=== PATIENT | female | born 1930 | race Caucasian/White ===

== ENCOUNTER → 2018-05-03 | Outpatient (CLI) | payer MEDICARE ==
[~2018-05-03] MED LIST: ADULT LOW DOSE81 MG PO; ALLOPURINOL 10100 M1 PO; APAP500 PO; ATENOLOL 50MG T50 M1 PO; BENZONATATE200 MG PO; HYDROCHLOROTH12.5 MG PO; LEVAQUIN 250 M250 MG PO; LEVOXYL100 MCG PO; LISINOPRIL PO; LISINOPRIL40 MG PO; LOVASTAT40 PO; LOVASTATIN PO; LOW DOSE ASPIRI81 M1 PO; MACROBID 100 M100 M2 PO; MACRODANTIN50 M1 PO; MUCINEX600 MG PO; PERCOCET 5-3251 EACH PO; PREDNISONE 10 M10 M1; SOTALOL120 MG PO; SYNTHROID PO; TOPROL XL25 MG PO
== END ==
LOC: M.ULTRA 17:00
DX: M79.605 Pain in left leg (principal); M79.672 Pain in left foot; M79.89 Other specified soft tissue disorders; I73.9 Peripheral vascular disease, unspecified

== ENCOUNTER → 2018-06-30 | Outpatient (CLI) | payer MEDICARE | LOC: M.RAD 16:53 | DX: I51.7 Cardiomegaly (principal); J98.11 Atelectasis; R07.1 Chest pain on breathing; E78.5 Hyperlipidemia, unspecified; E03.9 Hypothyroidism, unspecified; E11.9 Type 2 diabetes mellitus without complications ==

== ENCOUNTER 2018-07-07 17:44 | Inpatient (IN) | payer MEDICARE ==
[~2018-07-07] VITALS: Ht 162.6 cm; Wt 100.0 kg
--- NOTE | ~2018-07-07 | EKG ---
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
[~2018-07-07 17:44] MED LIST changes: -ALLOPURINOL 10100 M1 PO; -MACROBID 100 M100 M2 PO; -MACRODANTIN50 M1 PO
[2018-07-07 17:45] VITALS: BP 142/78
[2018-07-07 18:26] LABS: ABSOLUTE EOSINOPHILS 0.1 thou/uL (0.0-0.7); ABSOLUTE LYMPHOCYTES 2.6 thou/uL (0.8-5.3); ABSOLUTE MONOCYTES 1.6 thou/uL (0.0-1.2); ABSOLUTE NEUTROPHILS 5.9 thou/uL (1.6-8.1); BASOPHILS 0.3 %; EOSINOPHILS 1.3 %; HEMATOCRIT 42.9 % (37.0-47.0); HEMOGLOBIN 14.2 gm/dL (12.0-15.0); LYMPHOCYTES 25.8 %; MCH 31.7 pg (26.0-34.0); MCHC 33.1 g/dL (28.0-37.0); MCV 95.8 fL (80.0-100.0); MONOCYTES 15.4 %; MPV 9.8 fl. (7.2-11.1); NUCLEATED RBCS 0 /100WBC; PLATELET COUNT* 209 thou/uL (150-400); POLYS 57.2 %; RBC 4.47 mil/uL (4.20-5.00); RDW-CV 15.6 % (10.5-14.5); WBC 10.2 thou/uL (4.0-11.0)
[2018-07-07 18:30] LABS: APTT 21.9 Seconds (25.0-31.3)
[2018-07-07 18:31] LABS: CALCIUM 8.8 mg/dL (8.5-10.1); CREATININE 1.7 mg/dL (0.6-1.3); POTASSIUM 4.3 mmol/L (3.5-5.1)
[2018-07-07 18:36] LABS: ALBUMIN 2.9 g/dL (3.4-5.0); TOTAL BILIRUBIN 0.4 mg/dL (<0.1-1.0); TOTAL PROTEIN 6.9 g/dL (6.4-8.2)
[2018-07-07 21:11] VITALS: BP 122/62
[2018-07-07 21:30] VITALS: BP 172/69
--- NOTE | 2018-07-08 04:24 | NUR ---
PATIENT ARRIVED BY CART FROM ER TO ROOM 104 IN STABLE CONDITION AT 2130. ALERT AND ORIENTED X4. TYLENOL GIVEN X1 FOR PAIN PER PATIENT REQUEST, PARTIAL PAIN RELIEF REPORTED. VOIDING ADEQUATELY PER BEDPAN. DR LAY ON UNIT TO SEE PATIENT LAST EVENING, ORDERS RECEIVED. PATIENT REPOSITIONED SELF IN BED FREQUENTLY. REFUSED SCD'S AT . VITALS STABLE ON ROOM AIR. WILL CONTINUE TO MONITOR.
[2018-07-08 08:29] VITALS: BP 165/62
[2018-07-08] MEDS ORDERED: ALLOPURINOL 10100 M1 PO (12:50)
--- NOTE | 2018-07-08 14:35 | NUR ---
SPOKE WITH PT. SHE WAS ALERT AND ORIENTED. SHE LIVES ALONE IN A DUPLEX. HER FAMILY IS SUPPORTIVE. SHE IS NORMALLY INDEPENDENT. SHE LOST HER BALANCE COMING OUT OF THE OFFICE. SHE DRIVES,COOKS,CLEANS,DOES HER LAUNDRY. SHE HOPES TO GO HOME AT DISCHARGE BUT DOESN'T FEEL SECURE YET. DISCUSSED SNF VS INPT.REHAB UNIT. SHE DOES NOT WANT TO GO TO SNF. WILL CHECK TO SEE IF PT.WOULD QUIALIFY FOR INPT.REHAB.
--- NOTE | 2018-07-08 16:25 | NUR ---
PATIENT REMAINS ALERT AND ORIETNED. PAIN CONTROLLED WITH REST AND TYLENOL. PATIENT DOES NOT WANT NARCOTIC PAIN MEDICATION. WORKED WITH PT/OT. PLANS TO DC HOME TOMORROW WITH HOME HEALTH. TOLERATING MEALS. MUSCLE RUB ORDERED FOR GOUT PAIN IN RIGHT ANKLE. VSS. BED/CHAIR ALARM IN USE. CALL LIGHT WITHIN REACH. WILL CONTINUE TO MONITOR.
[2018-07-08 16:47] VITALS: BP 170/77
--- NOTE | 2018-07-08 16:59 | EKG ---
[place] [address] ELECTROCARDIOGRAM REPORT Name: JOAN FARAH Room: [address] ADM IN M.R.#: [id number] Admission: 07/07/18 Attend Phys: Zack Doyle MD Discharge: Date of : 07/29/[birth year] Report #: [id number] THIS REPORT FOR: //name// [facility] Test Date: 2018-07-08 Test Time: 16:25:40 Pat Name: JOAN FARAH Department: Room: [address] Gender: F Psychology Tech: OSVALDO : 1930 Requested By: Shravan Coe Order Number: [id number] Reading MD: Arron Duran Measurements Intervals [place] Rate: 58 P: 14 UT: 175 QRS: -27 QRSD: 105 T: 133 QT: 489 QTc: 481 Interpretive Statements Sinus rhythm Atrial premature complex Borderline left axis deviation Low voltage, precordial leads Anteroseptal infarct, old Borderline repolarization abnormality No previous ECG available for comparison Electronically Signed On 07-08-2018 16:59:22 CDT by Arron Duran [email or web address] <ELECTRONICALLY SIGNED> By: Arron Duran MD, FACC 07/08/18 1659 1625 1625 Arron Duran MD, [facility] /EPI
[2018-07-08 20:00] VITALS: BP 150/75
--- NOTE | 2018-07-09 04:45 | NUR ---
PATIENT ALERT AND ORIENTED X4. UP WITH ASSIST X2. INCONTINENT X2. TYLENOL GIVEN X1 FOR PAIN. TOLERATING DIET. DENIES NAUSEA. VITALS STABLE ON ROOM AIR. WILL CONTINUE TO MONITOR.
[2018-07-09 08:36] VITALS: BP 145/65
[2018-07-09 13:29] LABS: ABSOLUTE EOSINOPHILS 0.2 thou/uL (0.0-0.7); ABSOLUTE LYMPHOCYTES 2.8 thou/uL (0.8-5.3); ABSOLUTE MONOCYTES 1.3 thou/uL (0.0-1.2); ABSOLUTE NEUTROPHILS 5.2 thou/uL (1.6-8.1); BASOPHILS 0.2 %; EOSINOPHILS 2.1 %; HEMATOCRIT 44.4 % (37.0-47.0); HEMOGLOBIN 14.7 gm/dL (12.0-15.0); LYMPHOCYTES 29.3 %; MCH 31.8 pg (26.0-34.0); MCHC 33.2 g/dL (28.0-37.0); MCV 95.7 fL (80.0-100.0); MONOCYTES 14.1 %; MPV 9.8 fl. (7.2-11.1); NUCLEATED RBCS 0 /100WBC; PLATELET COUNT* 206 thou/uL (150-400); POLYS 54.3 %; RBC 4.64 mil/uL (4.20-5.00); RDW-CV 15.1 % (10.5-14.5); WBC 9.6 thou/uL (4.0-11.0)
[2018-07-09 13:53] LABS: ALBUMIN 2.9 g/dL (3.4-5.0); CREATININE 1.6 mg/dL (0.6-1.3); POTASSIUM 4.4 mmol/L (3.5-5.1); TOTAL BILIRUBIN 0.6 mg/dL (<0.1-1.0); TOTAL PROTEIN 7.1 g/dL (6.4-8.2)
--- NOTE | 2018-07-09 14:09 | NUR ---
PT.UP IN CHAIR. ALERT AND ORIENTED. TALKED ABOUT HER REHAB EVAL. TOLD HER IT IS ONGOING TO DETERMINE IF SHE WILL BE ABLE TO DO 3 HRS OF THERAPY. SHE IS ONLY TAKING TYLENOL FOR PAIN. ENCOURAGED TO TAKE SOMETHING A LITTLE STRONGER FOR PAIN. TOLD HER WE NEEDED A PLAN B IF SHE CANNOT GO TO REHAB. SHE ADAMANTLY REFUSES SNF. WOULD NOT EVEN LOOK AT LIST. SHE SAID SHE WILL JUST GO HOME WITH HOME HEATLH. EXPLAINED SHE WOULD NEED TO BE WALKING FURTHER DISTANCES TO BE ABLE TO GO HOME, UNLESS SOMEONE WOULD BE STAYING WITH HER. SHE SAID HER DAUGHTER'S WORK. TRIED TO CALL [employer] [phone]. SPOKE WITH ,OBIE. SHE IS AT WORK AND CANNOT RECEIVE PHONE CALLS AT WORK. HE SAID [employer] IS PLANNING ON SPENDING THE NIGHTS WITH PT. AND ANOTHER SISTER AND NIECE WOULD BE AVAILABLT TO GO IN DURING THE DAYS. PT.WOULD LIKE TO USE [facility] FOR HOME [facility]AT[facility]. SPOKE WITH MELANIE/[facility]. SHE SAID THEY DO GO TO PT.S ADDRESS. FAXED REFERRAL TO HER.
[2018-07-09 16:00] VITALS: BP 140/62
--- NOTE | 2018-07-09 16:06 | NUR ---
ASSUMED PATIENT CARE AT 1515. PATIENT RESTING QUIETLY IN CHAIR AT THIS TIME. CONTINUE TO MONITOR.
--- NOTE | 2018-07-09 17:51 | NUR ---
PATIENT SITTING IN CHAIR ON HOURLY ROUNDS. UP WITH ASSIST X1. AWAITING DC ORDERS TO REHAB. PAIN CONTROLLED WITH TYLENOL. PASSING GAS. NO BM. VITALS STABLE. WILL CONTINUE TO MONITOR.
[2018-07-09 19:30] VITALS: BP 121/71
--- NOTE | 2018-07-10 04:37 | NUR ---
PATIENT REMAINS ALERT AND ORIENTED X4 THROUGHOUT SHIFT. VITAL SIGNS STABLE ON ROOM AIR. IV PATENT IN THE LEFT HAND SALINE LOCKED. TRANSFERS WITH ONE ASSIST TO THE BEDSIDE COMMODE WITH THE WALKER AND GAITBELT. PATIENT IS INCONTINENT AT NIGHT AND HAS BEEN EDUCATED ON NOT WEARING BRIEFS TO BED. PATIENT STATES SHE DOES NOT WANT TO GET UP TO URINATE. NURSING CONTINUES TO EDUCATE PATIENT AND ENCOURAGE PATIENT TO TRANSFER TO BEDSIDE COMMODE. REPOSITIONING SELF IN BED. DENIES PAIN OR NAUSEA. TOLERATING DIET. RESTING COMFORTABLY THROUGHOUT NIGHT. NURSING WILL CONTINUE TO MONITOR.
--- NOTE | 2018-07-25 16:57 | CON ---
[address] [address] CONSULTATION Name: JOAN FARAH Room: [address] IN M.R.#: [id number] Admission: 07/07/18 Attend Phys: Zack Doyle MD Discharge: 07/10/18 Date of : 07/29/29 Report #: [id number] THIS REPORT FOR: //name// CC: Zack Solorzanoa Aries HISTORY OF PRESENT ILLNESS: This 87-year-old female fell at her apartment, injuring her right pelvis and left second finger. She was seen in the Emergency Room, where she was evaluated and was found to have an undisplaced fracture of the right superior pubic rami and a undisplaced fracture of the distal phalanx of her left index finger. She was advised to become hospitalized for acute care and subsequent ambulation. She will be started to physical therapy tomorrow, where she will be ambulated with weightbearing as tolerated. She will do activity as tolerated. She desires to attempt to go home in a few days with home health. She will be followed until all of her fractures are healed. DIAGNOSES: Undisplaced right superior pubic rami fracture, undisplaced fracture of the left second finger. Thank you for the opportunity of seeing the patient. <ELECTRONICALLY SIGNED> By: Miko Yuan MD 07/25/18 1657 2222 [id number] meeta Whiting
== END 2018-07-10 09:25 | DRG 543 ==
LOC: M.ERS 17:44 → M.TBA-ER 19:57 → M.ORTHSURG 19:57
PROVIDERS: Internal Medicine; Nurse Practitioner Family; ADMIT Internal Medicine
PROC: 2W3KX1Z Immobilization of Left Finger using Splint (ICD-10-PCS; principal; 2018-07-07)
DX: M80.051A Age-related osteoporosis with current pathological fracture, right femur, initial encounter for fracture (principal); E44.1 Mild protein-calorie malnutrition; S62.631A Displaced fracture of distal phalanx of left index finger, initial encounter for closed fracture; E78.5 Hyperlipidemia, unspecified; E03.9 Hypothyroidism, unspecified; I48.91 Unspecified atrial fibrillation; N18.3 Chronic kidney disease, stage 3 (moderate); E11.22 Type 2 diabetes mellitus with diabetic chronic kidney disease; I12.9 Hypertensive chronic kidney disease with stage 1 through stage 4 chronic kidney disease, or unspecified chronic kidney disease; M10.9 Gout, unspecified; S76.219A Strain of adductor muscle, fascia and tendon of unspecified thigh, initial encounter; M81.0 Age-related osteoporosis without current pathological fracture; W18.39XA Other fall on same level, initial encounter; Y93.89 Activity, other specified; Y92.481 Parking lot as the place of occurrence of the external cause; Y99.8 Other external cause status; Z90.710 Acquired absence of both cervix and uterus; Z98.41 Cataract extraction status, right eye; Z79.82 Long term (current) use of aspirin; Z79.899 Other long term (current) drug therapy; Z88.0 Allergy status to penicillin; Z88.2 Allergy status to sulfonamides; Z88.5 Allergy status to narcotic agent; Z88.8 Allergy status to other drugs, medicaments and biological substances

== ENCOUNTER 2018-07-09 14:42 | Inpatient (IN) | payer MEDICARE ==
[~2018-07-09] VITALS: Ht 162.6 cm; Wt 101.2 kg
[~2018-07-09 14:42] MED LIST changes: +ALLOPURINOL 10100 M1 PO
[2018-07-10 08:00] VITALS: BP 140/58
[2018-07-10 09:41] VITALS: BP 122/57
[2018-07-10 10:00] VITALS: BP 122/57
[2018-07-10 22:24] VITALS: BP 136/49
[2018-07-11 03:52] LABS: HEMATOCRIT 41.9 % (37.0-47.0); HEMOGLOBIN 13.5 gm/dL (12.0-15.0); MCHC 32.1 g/dL (28.0-37.0); MCV 96.8 fL (80.0-100.0); MPV 9.9 fl. (7.2-11.1); RBC 4.33 mil/uL (4.20-5.00); RDW-CV 15.3 % (10.5-14.5); WBC 8.7 thou/uL (4.0-11.0)
[2018-07-11 04:13] LABS: CALCIUM 8.1 mg/dL (8.5-10.1); CREATININE 1.9 mg/dL (0.6-1.3); POTASSIUM 4.3 mmol/L (3.5-5.1)
[2018-07-11 09:27] VITALS: BP 160/61
[2018-07-11 20:46] VITALS: BP 98/53
[2018-07-12 08:00] VITALS: BP 119/54
[2018-07-12 20:09] VITALS: BP 112/56
[2018-07-13 04:10] LABS: CALCIUM 8.3 mg/dL (8.5-10.1); POTASSIUM 4.7 mmol/L (3.5-5.1)
[2018-07-13 09:20] VITALS: BP 138/68
[2018-07-13 20:38] VITALS: BP 140/62
[2018-07-14 08:17] VITALS: BP 151/63
[2018-07-14 20:50] VITALS: BP 138/57
[2018-07-15 08:18] VITALS: BP 153/78
[2018-07-15 20:30] VITALS: BP 145/62
[2018-07-16 08:41] VITALS: BP 169/74
[2018-07-16 20:32] VITALS: BP 148/68
[2018-07-17 07:44] VITALS: BP 139/70
[2018-07-17 19:48] VITALS: BP 137/69
[2018-07-18 07:49] VITALS: BP 129/72
--- NOTE | 2018-07-18 08:16 | PLAN ---
[address] [address] REHAB UNIT PLAN OF CARE Name: JOAN FARAH Room: [address] IN .R.#: [id number] Admission: 07/10/18 Attend Phys: Kaitlynn Santizo DO Discharge: Date of : 07/29/[birth year] Report #: [id number] THIS REPORT FOR: //name// CC: Abbie Santizo OVERALL PLAN OF CARE: This is an 87-year-old female admitted to inpatient rehabilitation to facilitate safe discharge home, status post fall in her doctor's parking lot sustaining a right superior pubic ramus fracture. She was also diagnosed with pneumonia and an avulsion fracture of the distal phalanx of the finger. She has needs in physical and occupational therapy. She has been evaluated by speech and language pathology. Previous level of function was independent to modified independent with activities of daily living. Current level of function is minimum to moderate assistance of 1-2 depending on therapy, activity and time of day. Estimated length of stay is 12-14 days with discharge disposition to the home setting where she does have an accessible house and a supportive family. Medical prognosis is good. Rehabilitation prognosis is good. Physical Therapy will see the patient 60-90 minutes per day, 5 days per week, working on upper and lower body strength, balance, coordination, navigation. Occupational Therapy will work with the patient 60-90 minutes per day, 5 days per week, working on upper and lower body strength, balance, coordination, navigation, bathing, dressing, and toileting. At this time, cognitive evaluation has not been done, appears to not have any needs, however. This is an overall plan of care. We will team her weekly, changes to plan of care will be done as needed. <ELECTRONICALLY SIGNED> By: Kaitlynn Santizo DO 07/18/18 0816 1519 [id number] Santizo DO /nt
--- NOTE | 2018-07-18 08:16 | H ---
[address] [address] HISTORY AND PHYSICAL Name: JOAN FARAH Room: [address] IN ..#: [id number] Admission: 07/10/18 Attend Phys: Kaitlynn Santizo DO Discharge: Date of : 07/29/[birth year] Report #: [id number] THIS REPORT FOR: //name// CC: Abbie Santizo DATE OF SERVICE: 07/10/2018 HISTORY OF PRESENT ILLNESS: This is an 87-year-old female, admitted to inpatient rehabilitation to facilitate safe discharge home, status post acute hospitalization starting on 07/07/2018 with a right superior and inferior fracture of the pubic ramus as well as a left finger fracture status post fall in the parking lot leaving her doctor's office. She was seen by Orthopedic Surgery, treated conservatively, pain has been under control. She also sustained an inguinal sprain, which has also been causing some pain and an avulsion of the second phalanx of the left hand. She was also found to have pneumonia. She is weightbearing as tolerated. No significant changes since the preadmission screening. Previous level of function was independent to modified independent with activities of daily living. Current level of function is minimum to maximum assistance depending on therapy, activity and time of day. Her comprehension, expression, problem solving and memory are within normal limits, as is her swallow. Her estimated length of stay is 12-14 days with discharge disposition to the home setting where she lives in a home. She has daughter that can provide assistance and supervision if needed. No stairs to enter. Again, no significant changes since the preadmission screening. PAST MEDICAL HISTORY: Hypertension, hyperlipidemia, diabetes type 2, atrial fibrillation, chronic kidney disease 3. Gout, osteoarthritis, hypothyroid, vestibular disease, pneumonia, morbid obesity. PAST SURGICAL HISTORY: Hysterectomy, bilateral total knee replacements and a right cataract surgery. ALLERGIES: CODEINE, MORPHINE, PENICILLIN, SULFA AND MEPERIDINE. SOCIAL HISTORY: No tobacco, alcohol or illicit drug use. FAMILY HISTORY: Heart disease. MEDICATIONS: Have been reviewed and reconciled by myself and are available in the MAR. REVIEW OF SYSTEMS: A 14-point review of systems is done and is negative except as mentioned in HPI, specifically no fever, chest pain, shortness of breath, abdominal pain or distention, change in [place] [address] HISTORY AND PHYSICAL Name: JOAN FARAH [facility] Room: [address] IN [facility]#: [id number] Admission: 07/10/18 Attend Phys: Kaitlynn Santizo DO Discharge: Date of : 07/29/[birth year] Report #: [id number] PHYSICAL EXAMINATION: GENERAL: Alert, oriented, in no apparent distress. VITAL SIGNS: Reviewed and are stable. HEENT: Head is atraumatic, normocephalic. Pupils equal, round, reactive. ABDOMEN: Soft, nontender, nondistended. NEUROLOGIC: Cranial nerves 2-12 are grossly intact with no focal neuro deficits. SKIN: Warm and dry. No rashes or lesions noted. ASSESSMENT: 1. Status post right superior and inferior fracture of the pubic ramus, left finger fracture and an inguinal sprain post-fall on 07/07/2018 from standing height in the parking lot of her doctor's office. 2. Multiple medical comorbidities requiring acute daily medical care. PLAN: 1. Admission to inpatient rehabilitation. 2. PT, OT, speech, language, case management, nursing and HIMS to make evaluations and recommendations. <ELECTRONICALLY SIGNED> By: Kaitlynn Santizo DO 07/18/18 0816 1606 1704Kaitlynn Santizo DO /nt
[2018-07-18 19:30] VITALS: BP 128/63
[2018-07-19 07:46] VITALS: BP 130/60
[2018-07-19 20:00] VITALS: BP 169/61
[2018-07-20 08:00] VITALS: BP 159/71
[2018-07-20 20:00] VITALS: BP 138/61
[2018-07-21 08:02] VITALS: BP 142/69
[2018-07-21 19:40] VITALS: BP 127/65
[2018-07-22 07:50] VITALS: BP 115/67
[2018-07-22 19:30] VITALS: BP 138/61
[2018-07-23 08:00] VITALS: BP 114/78
[2018-07-23 20:00] VITALS: BP 146/69
[2018-07-24 07:30] VITALS: BP 142/74
[2018-07-24 20:00] VITALS: BP 141/71
[2018-07-25 08:08] VITALS: BP 138/65
[2018-07-25 13:30] LABS: URINE BILIRUBIN NEGATIVE (Negative); URINE BLOOD NEGATIVE (Negative); URINE CLARITY CLEAR; URINE COLOR YELLOW; URINE GLUCOSE-RANDOM NEGATIVE (Negative); URINE KETONES NEGATIVE (Negative); URINE LEUKOCYTES-REFLEX 1+ (Negative); URINE PROTEIN 2+ (Negative)
[2018-07-25 13:38] LABS: URINE NITRITE-REFLEX POSITIVE (Negative)
[2018-07-25 13:40] LABS: SQUAMOUS 0-3 Few /LPF (0-3); URINE WBC-REFLEX >25 Many /HPF (0-5)
[2018-07-25 13:41] LABS: BACTERIA-REFLEX >30 Many /HPF (None Seen); CASTS None Seen /LPF (None Seen); CRYSTALS None Seen /LPF (None Seen); URINE RBC None Seen /HPF (0-2)
[2018-07-25 20:00] VITALS: BP 148/55
[2018-07-26 03:59] LABS: HEMATOCRIT 37.4 % (37.0-47.0); HEMOGLOBIN 12.5 gm/dL (12.0-15.0); MCH 31.7 pg (26.0-34.0); MCHC 33.3 g/dL (28.0-37.0); MCV 95.3 fL (80.0-100.0); MPV 10.6 fl. (7.2-11.1); RBC 3.93 mil/uL (4.20-5.00); RDW-CV 15.5 % (10.5-14.5); WBC 8.2 thou/uL (4.0-11.0)
[2018-07-26 05:11] LABS: ALBUMIN 2.6 g/dL (3.4-5.0); CALCIUM 8.3 mg/dL (8.5-10.1); CREATININE 1.2 mg/dL (0.6-1.3); POTASSIUM 4.2 mmol/L (3.5-5.1); TOTAL BILIRUBIN 0.6 mg/dL (<0.1-1.0); TOTAL PROTEIN 5.5 g/dL (6.4-8.2)
[2018-07-26 07:55] VITALS: BP 166/72
[2018-07-26 19:40] VITALS: BP 120/54
[2018-07-27 07:50] VITALS: BP 159/73
[2018-07-27] MEDS ORDERED: MACROBID 100 M100 M2 PO (10:17)
[2018-07-27] MEDS ORDERED: MACRODANTIN50 M1 PO (10:20)
[2018-07-27 10:35] VITALS: BP 159/73
[2018-07-27 10:54] VITALS: BP 159/73
--- NOTE | 2018-08-04 13:47 | D ---
[facility] [address] [place] [address] DISCHARGE SUMMARY Name: JOAN FARAH Room: [address] IN M.R.#: [id number] Admission: 07/10/18 Attend Phys: Kaitlynn Santizo DO Discharge: 07/27/18 Date of : [birth year]/29/[birth year] Report #: [id number] THIS REPORT FOR: //name// CC: Abbie Chris Kaitlynn Santizo DATE OF SERVICE: 07/27/2018 DISCHARGE DIAGNOSES: 1. Right superior and inferior fracture of the pubic ramus. 2. Left finger fracture status post fall from standing height. She is discharged to the home setting with home health PT, OT and nursing. She will follow with her orthopedic surgeon in 1-2 weeks and her primary care physician within one week. Notifications for physician were given. She will maintain a regular diet. Monitor weight gain and maintain fall precautions. MEDICATIONS: Reviewed and reconciled by myself and are available in the MAR. DISCHARGE PHYSICAL EXAMINATION: GENERAL: Alert and oriented, in no apparent distress. VITAL SIGNS: Reviewed and are stable. HEENT: Head is atraumatic, normocephalic. Pupils equal, round, reactive. ABDOMEN: Soft, nontender, nondistended. NEUROLOGIC: Cranial nerves 2-12 are grossly intact. No focal neuro deficits. SKIN: Warm and dry. No rashes or lesions noted. <ELECTRONICALLY SIGNED> By: Kaitlynn Santizo DO 08/04/18 1347 1327 [id number] Santizo DO /adolph
== END 2018-07-27 13:15 | disposition home health service (06) | DRG 535 ==
LOC: M.REH 14:42
PROVIDERS: Internal Medicine; ADMIT Physical Medicine & Rehabilitation
DX: S32.511A Fracture of superior rim of right pubis, initial encounter for closed fracture (principal); J18.9 Pneumonia, unspecified organism; N39.0 Urinary tract infection, site not specified; S62.631A Displaced fracture of distal phalanx of left index finger, initial encounter for closed fracture; I12.9 Hypertensive chronic kidney disease with stage 1 through stage 4 chronic kidney disease, or unspecified chronic kidney disease; N18.3 Chronic kidney disease, stage 3 (moderate); I48.91 Unspecified atrial fibrillation; M10.9 Gout, unspecified; M81.0 Age-related osteoporosis without current pathological fracture; E78.00 Pure hypercholesterolemia, unspecified; M19.90 Unspecified osteoarthritis, unspecified site; E03.9 Hypothyroidism, unspecified; K59.00 Constipation, unspecified; R35.0 Frequency of micturition; I87.8 Other specified disorders of veins; E11.22 Type 2 diabetes mellitus with diabetic chronic kidney disease; E66.01 Morbid (severe) obesity due to excess calories; Z96.653 Presence of artificial knee joint, bilateral; W18.39XA Other fall on same level, initial encounter; Y93.89 Activity, other specified; Y92.481 Parking lot as the place of occurrence of the external cause; Y99.8 Other external cause status; Z68.38 Body mass index [BMI] 38.0-38.9, adult; Z90.710 Acquired absence of both cervix and uterus; Z98.41 Cataract extraction status, right eye; Z79.82 Long term (current) use of aspirin; Z79.899 Other long term (current) drug therapy; Z88.6 Allergy status to analgesic agent; Z88.0 Allergy status to penicillin; Z88.2 Allergy status to sulfonamides; Z88.8 Allergy status to other drugs, medicaments and biological substances; Z82.49 Family history of ischemic heart disease and other diseases of the circulatory system

== ENCOUNTER → 2019-04-20 | Day surgery (SDC) | payer MEDICARE ==
[~2019-04-20] MED LIST changes: +ELMIRON 100 MG100 M1 PO; +LEVSIN0.125 MG PO; +MACROBID 100 M100 M2 PO; +MACRODANTIN50 M1 PO; +SYNTHROID125 MC1 PO; +ZYLOPRIM300 MG PO
[2019-04-20 11:47] LABS: HEMATOCRIT 42.5 % (37.0-47.0); MCH 31.4 pg (26.0-34.0); MPV 10.7 fl. (7.2-11.1); RBC 4.48 mil/uL (4.20-5.00); RDW-CV 14.9 % (10.5-14.5); WBC 8.1 thou/uL (4.0-11.0)
[2019-04-20 11:51] LABS: CALCIUM 9.1 mg/dL (8.5-10.1); CREATININE 1.5 mg/dL (0.6-1.3); POTASSIUM 4.3 mmol/L (3.5-5.1)
--- NOTE | 2019-04-22 13:09 | PATH ---
[facility] [address] [place] [address] PATHOLOGY RPT PROCEDURE Name: JOAN ORLANDO SHAWN Room: [facility].R.#: [id number] Admission: 04/20/19 Date of : [birth year] Discharge: Report #: [id number] Path Case #: [id number] [facility] Accession Number: [id number] . 01 Material submitted: . PART A: bladder - BIOPSY OF LOWER POSTERIOR BLADDER WALL. Modifiers: lower, posterior, wall PART B: bladder - RIGHT LATERAL WALL BLADDER BIOPSY. Modifiers: right, lateral, wall . 01 Clinical history: . Pre-OP DX: Recurrent UTI Post-OP DX: Bladder lesion, urinary frequency and dysuria . 02 Diagnosis: A. 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 - Scant benign smooth muscle compatible with muscularis propria. See comment. . B. Right lateral wall bladder biopsy: - Severe acute and chronic follicular cystitis, negative for high-grade dysplasia. - Benign smooth muscle compatible with muscularis propria. See comment. (ODETTE:pit 04/21/2019) QTP/04/21/2019 . 02 Comment: Specimens A and B reviewed with Dr. Caren Christian who agrees with the diagnoses. (ODETTE:[facility] 04/21/2019) . 02 Electronically signed: . Hayden Pulido MD, Pathologist NPI- [id number] . 01 Gross description: . A. Received in formalin labeled "Joan Orlando, biopsy of lower posterior bladder wall," are 2 segments of valle soft tissue measuring 0.8 x 0.2 x 0.2 cm in aggregate dimensions and measuring 0.4 cm each in maximum dimension. The specimen is submitted entirely in cassette A1. . B. Received in formalin labeled "Joan Orlando, right lateral wall bladder biopsy," is a single segment of valle soft tissue measuring 0.4 cm in maximum dimension. The specimen is entirely submitted in cassette B1. (TSD; 04/20/2019) TOB/[place] [address] PATHOLOGY RPT PROCEDURE Name: JOAN ORLANDO SHAWN Room: [facility] M.R.#: [id number] Admission: 04/20/19 Date of : [birth year]/29/[birth year] Discharge: Report #: [id number] Path Case #: [id number] . 02 Pathologist provided ICD-10: N30.30 . 02 CPT . 347973, [id number] Specimen Comment: A courtesy copy of this report has been sent to Specimen Comment: [phone], . Specimen Comment: Report sent to / DR FIGUEROA Performed at: [address] [facility] [address], [place], [place] [id number] MD Zeeshan Bob MD Phone: [phone] Performed at: [address] [facility] [address] [address], [place], [place] [id number] MD Hayden Pulido MD Phone: [phone]
--- NOTE | 2019-04-27 16:31 | OP ---
[facility] [address] [place] [address] OPERATIVE REPORT Name: JOAN FARAH Room: [facility]..#: [id number] Admission: 04/20/19 Attend Phys: Alycia Cruz, Discharge: Date of : 07/29/[birth year] Report #: [id number] THIS REPORT FOR: //name// CC: [facility] Alycia Solorzanoa Aries DATE OF SERVICE: 04/20/2019 PREOPERATIVE DIAGNOSES: Bladder erythema, dysuria, urinary frequency. POSTOPERATIVE DIAGNOSES: Bladder erythema, dysuria, urinary frequency. PROCEDURE: Cystourethroscopy with bladder biopsies. SURGEON: Alycia Cruz M.D. ANESTHESIA: General. ESTIMATED BLOOD LOSS: Minimal. COMPLICATIONS: None. SPECIMENS: Bladder biopsies from the lower posterior wall and right wall. INDICATIONS FOR PROCEDURE: The patient is an 88-year-old female who has had complaints of worsening urinary frequency, dysuria, and bladder pain. She has been refractory to Azo and Ural, and has had several negative urine cultures for infection. Cystoscopy revealed some bladder erythema and abnormal appearing mucosa and I recommended bladder biopsy to rule out presence of CIS. Risks of procedure were discussed including but not limited to infection, bleeding, injury to the urethra, bladder, ureters, bladder perforation requiring open repair, cardiopulmonary complications. She voiced understanding and wished to proceed. DESCRIPTION OF PROCEDURE: After informed consent was obtained, the patient was taken back to the operating suite and placed supine. After induction of general anesthesia, she was placed in dorsal lithotomy position. Genitalia were prepped and draped in standard fashion. Rigid cystoscopy was performed. Urethra appeared normal. Bladder, immediately on entering was full of cloudy urine and this was filled and emptied a couple times to clear this up. She had a lot of whitish debris, free floating. Once this was cleared up, the bladder mucosa was carefully inspected. 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 [place] [id number] OPERATIVE REPORT Name: JOAN FARAH SHAWN Room: [facility].#: [id number] Admission: 04/20/19 Attend Phys: Alycia Cruz, Discharge: Date of : 07/29/[birth year] Report #: [id number] changes, mostly of the posterior wall and some on the right wall. The dome was mostly spared as well as the left wall and trigonal area. The lower posterior wall and right wall were both biopsied and then fulgurated with Bugbee cautery. Again the mucosa almost appeared to be like the very top layer was sloughing off just with filling of the bladder and definitely had submucosal hemorrhage with distention. I somewhat suspect she has interstitial cystitis based on these findings, but we will await the final pathology report. The bladder was filled one more time to check hemostasis and this remained excellent. The bladder was then drained and the scope was removed. A 5 mL of lidocaine jelly were used per urethra for local anesthesia. She was awoken, extubated and taken to recovery in satisfactory condition. She will be dismissed home, and follow up with me in a week to discuss pathology results. I did provide a prescription for Elmiron to be started t.i.d. as well as Levsin. <ELECTRONICALLY SIGNED> By: Alycia Cruz MD 04/27/19 1631 1335 1803Alycia Cruz MD /nt
== END | disposition home or self-care (01) ==
LOC: M.SUR 06:44
PROVIDERS: Urology
DX: N30.00 Acute cystitis without hematuria (principal); N30.20 Other chronic cystitis without hematuria; N32.89 Other specified disorders of bladder; I12.9 Hypertensive chronic kidney disease with stage 1 through stage 4 chronic kidney disease, or unspecified chronic kidney disease; E11.22 Type 2 diabetes mellitus with diabetic chronic kidney disease; N18.3 Chronic kidney disease, stage 3 (moderate); E03.9 Hypothyroidism, unspecified; E78.5 Hyperlipidemia, unspecified; Z88.2 Allergy status to sulfonamides; Z88.0 Allergy status to penicillin; Z79.82 Long term (current) use of aspirin; Z79.899 Other long term (current) drug therapy; Z87.01 Personal history of pneumonia (recurrent); Z88.6 Allergy status to analgesic agent; Z90.710 Acquired absence of both cervix and uterus; Z96.653 Presence of artificial knee joint, bilateral; Z98.41 Cataract extraction status, right eye; Z98.890 Other specified postprocedural states; Z88.8 Allergy status to other drugs, medicaments and biological substances; Z82.49 Family history of ischemic heart disease and other diseases of the circulatory system; Z79.01 Long term (current) use of anticoagulants